=== PATIENT | male | born 1985 | race Caucasian/White ===

== ENCOUNTER 2017-08-16 02:01 | Emergency (ER) | payer SELFPAY ==
[2017-08-16] MEDS ORDERED: Azithromycin 250 MG Tab PO ONE (02:25)
--- NOTE | 2017-08-16 02:31 | EDM.PDOC ---
ED HPI GENERAL MEDICAL PROBLEM - General Chief Complaint: Genitourinary Problem Stated Complaint: poss std Time Seen by Provider: 08/16/17 02:18 Source of Information: Reports: Patient, RN Notes Reviewed - History of Present Illness INITIAL COMMENTS - FREE TEXT/NARRATIVE: 31-year-old male comes in with concern about sexual encounter with the lady that may have had immediate. The lady had recent exposure to someone known to have chlamydia and did receive treatment for chlamydia about one week ago. He did have sex with the lady prior to her treatment. He states that he has had very occasional burning but only on occasion. Been no discharge or other unusual symptomatology. He has had mild recent nasal and sinus congestion and occasional cough to suggest viral upper respiratory infection. - Related Data Allergies Allergy/AdvReac Type Severity Reaction Status Date / Time No Known Allergies Allergy Verified 08/16/17 02:11 Home Meds: Home Meds . [No Known Home Meds] 08/16/17 [History] Past Medical History HEENT History: Reports: Impaired Vision Musculoskeletal History: Reports: Fracture - Past Surgical History GI Surgical History: Reports: Appendectomy Musculoskeletal Surgical History: Reports: Other (See Below) Other Musculoskeletal Surgeries/Procedures:: Jaw surgery Social & Family History - Family History Family Medical History: Noncontributory - Tobacco Use Smoking Status *Q: Current Every Day Smoker Years of Tobacco use: 15 Packs/Tins Daily: 0.5 - Alcohol Use Days Per Week of Alcohol Use: 7 Number of Drinks Per Day: 10 Total Drinks Per Week: 70 - Recreational Drug Use Recreational Drug Use: No ED ROS GENERAL - Review of Systems Review Of Systems: See Below Constitutional: Denies: Fever, Chills HEENT: Reports: Rhinitis Respiratory: Reports: Cough. Denies: Shortness of Breath, Sputum Cardiovascular: Denies: Chest Pain GI/Abdominal: Denies: Abdominal Pain, Nausea, Vomiting : Reports: Dysuria (Occasional). Denies: Discharge Musculoskeletal: Reports: No Symptoms Skin: Reports: No Symptoms Neurological: Reports: No Symptoms ED EXAM, RENAL/ - Physical Exam Exam: See Below General Appearance: Alert, No Apparent Distress Head: No: Facial Swelling Neck: Supple Respiratory/Chest: No Respiratory Distress Extremities: Normal Range of Motion Neurological: Alert, Oriented, No Motor/Sensory Deficits Skin Exam: Warm, Dry, Normal Color Course - Vital Signs Last Recorded V/S: Last Vital Signs Temp 97.5 F 08/16/17 02:07 Pulse 72 08/16/17 02:07 Resp 16 08/16/17 02:07 BP 131/108 H 08/16/17 02:07 Pulse Ox 99 08/16/17 02:07 - Orders/Labs/Meds Orders: Active Orders 24 hr Category Date Time Status Azithromycin [Zithromax] Med 08/16/17 02:25 Once 1,000 mg PO ONETIME ONE Medication Orders Azithromycin (Zithromax) 1,000 mg PO ONETIME ONE Stop: 08/16/17 02:26 Meds: Medications Generic Name Dose Route Start Last Admin Trade Name Freq PRN Reason Stop Dose Admin Azithromycin 1,000 mg 08/16/17 02:25 Zithromax PO 08/16/17 02:26 ONETIME ONE Departure - Departure Time of Disposition: 02:26 Disposition: Home, Self-Care 01 Condition: Fair Clinical Impression: Concern about STD in male without diagnosis - Discharge Information Referrals: PCP,None [Primary Care Provider] - Additional Instructions: You have been given azithromycin 1 g while here in the ED which is our standard usual treatment for chlamydia, follow-up with your regular medical provider as needed, return to ED if symptoms worsening in any way. - My Orders Last 24 Hours: My Active Orders 08/16/17 02:25 Azithromycin [Zithromax] 1,000 mg PO ONETIME ONE - Assessment/Plan Last 24 Hours: My Active Orders 08/16/17 02:25 Azithromycin [Zithromax] 1,000 mg PO ONETIME ONE
== END 2017-08-16 02:40 | disposition home or self-care (01) ==
LOC: JD.ED 02:01
DX: Z20.2 Contact with and (suspected) exposure to infections with a predominantly sexual mode of transmission (principal); F17.210 Nicotine dependence, cigarettes, uncomplicated
CPT/HCPCS: 99283; A9270

== ENCOUNTER 2023-06-09 19:48 | Emergency (ER) | payer OTHER ==
[2023-06-09] MEDS ORDERED: Diphtheria,Pertussis(Acell),Tetanus Vaccine 0.5 ML Syringe IM ONE (20:22)
== END 2023-06-09 20:50 | disposition home or self-care (01) ==
LOC: JD.ED 19:48
DX: S61.211A Laceration without foreign body of left index finger without damage to nail, initial encounter (principal); Z23 Encounter for immunization; W26.8XXA Contact with other sharp object(s), not elsewhere classified, initial encounter; Y92.89 Other specified places as the place of occurrence of the external cause; Y99.0 Civilian activity done for income or pay
CPT/HCPCS: 90471; 90715; 99282-25

== ENCOUNTER 2025-04-07 02:11 | Emergency (ER) | payer SELFPAY ==
[2025-04-07] MEDS ORDERED: Sodium Chloride 0.9% 10 ML Syringe FLUSH PRN (03:47)
[2025-04-07 04:14] LABS: BASOPHILS ABSOLUTE AUTO 0.1 K/mm3 (0.0-0.2); BASOPHILS PERCENT AUTO 1.1 % (0.0-1.0); EOSINOPHILS ABSOLUTE AUTO 0.3 K/mm3 (0.0-0.4); EOSINOPHILS PERCENT AUTO 5.3 % (0.0-6.0); IMMATURE GRAN ABSOLUTE AUTO 0.02 K/mm3 (0.00-0.05); IMMATURE GRAN PERCENT AUTO 0.3 % (0.0-0.4); LYMPHOCYTES ABSOLUTE AUTO 2.4 K/mm3 (1.0-4.8); LYMPHOCYTES PERCENT AUTO 38.1 % (24.0-44.0); MEAN PLATELET VOLUME 9.8 fl (9.4-12.4); MONOCYTES ABSOLUTE AUTO 0.4 K/mm3 (0.0-0.8); MONOCYTES PERCENT AUTO 6.6 % (0.0-8.0); NEUTROPHILS ABSOLUTE AUTO 3.0 K/mm3 (1.8-7.7); NEUTROPHILS PERCENT AUTO 48.6 % (41.0-71.0); NRBC ABSOLUTE 0.00 (0.00-0.02); NRBC PERCENT 0.0 % (0.0-0.2); PLATELET COUNT,PLT 226 K/mm3 (150-400); RED BLOOD CELL COUNT 5.50 M/mm3 (4.52-5.90); WHITE BLOOD CELL COUNT,WBC 6.17 K/mm3 (3.9-11.3)
[2025-04-07 04:37] LABS: A/G RATIO 1.1 (1-2); ALANINE AMINOTRANSFERASE,ALT 30 U/L (16-63); ASPARTATE AMNIOTRANSFERASE,AST 22 U/L (15-37); BILIRUBIN TOTAL 0.4 mg/dL (0.2-1.0); BLOOD UREA NITROGEN,BUN 7 mg/dL (7-18); CARBON DIOXIDE,CO2 27 mEq/L (21-32); CHLORIDE,CL 105 mEq/L (98-107); CREATININE 1.0 mg/dL (0.7-1.3); EST CRCL DRUG DOSING (CG) 114.15 mL/min; ESTIMATED GFR 98 mL/min (>60); GLUCOSE RANDOM 105 mg/dL (70-99); POTASSIUM,K 4.1 mEq/L (3.5-5.1); PROTEIN TOTAL,TP 7.4 g/dl (6.4-8.2); SODIUM,NA 144 mEq/L (136-145)
[2025-04-07 04:43] LABS: TROPONIN I HIGH SENSITIVITY < 4 pg/mL (<=76)
[2025-04-07 04:51] LABS: CORONAVIRUS COVID-19 NAA NEGATIVE (NEGATIVE); INFLUENZA A NAA NEGATIVE (NEGATIVE); RESPIRATORY SYNCYTIAL VIR NAA NEGATIVE (NEGATIVE)
== END 2025-04-07 05:02 | disposition home or self-care (01) ==
LOC: JD.ED 02:11
DX: J06.9 Acute upper respiratory infection, unspecified (principal); R07.9 Chest pain, unspecified; Z79.899 Other long term (current) drug therapy; Z90.49 Acquired absence of other specified parts of digestive tract
CPT/HCPCS: 36415; 71045; 71045-26; 80053; 84484; 85025; 85379; 87637; 93005; 93010; 99283; 99285